=== PATIENT | male | born 1955 | race Caucasian/White ===

== ENCOUNTER 2016-04-26 05:07 | Inpatient (IN) | payer MEDICAID, OTHER ==
[~2016-04-26] VITALS: Ht 188 cm; Wt 76.8 kg
[2016-04-26 05:38] LABS: BASOPHILS # (AUTO) 0.08 K/uL (0.00-0.20); BASOPHILS % (AUTO) 0.9 % (0.0-2.0); EOSINOPHILS # (AUTO) 0.16 K/uL (0.00-0.70); EOSINOPHILS % (AUTO) 1.67 % (1.0-6.0); HEMATOCRIT 30.2 % (41-53); HEMOGLOBIN 10.1 g/dL (13.5-17.5); LYMPHOCYTES # (AUTO) 2.3 K/uL (1.0-4.8); LYMPHOCYTES % (AUTO) 24.4 % (22.0-44.0); MEAN CORPUSCULAR HEMOGLOBIN 30.2 pg (26.0-34.0); MEAN CORPUSCULAR HGB CONC 33.4 G/dL (31.0-37.0); MEAN CORPUSCULAR VOLUME 90 fL (80-100); MONOCYTES # (AUTO) 1.2 K/uL (0.1-1.0); MONOCYTES % (AUTO) 13.3 % (2.0-9.0); NEUTROPHILS # (AUTO) 5.6 K/uL (1.8-7.7); NEUTROPHILS % (AUTO) 59.7 % (40.0-70.0); PLATELET COUNT (AUTO) 437 K/uL (150-450); RED BLOOD CELL COUNT(AUTO) 3.34 MIL/uL (4.50-5.90); RED CELL DISTRIBUTION WIDTH 15.1 % (11.5-14.5); WHITE BLOOD COUNT (AUTO) 9.3 K/uL (4.5-11.0)
[2016-04-26 06:31] LABS: ALANINE AMINOTRANSFERASE 26 U/L (12-78); ALBUMIN 2.9 g/dL (3.4-5.0); ANION GAP 11 mmol/L (8-16); ASPARTATE AMINOTRANSFERASE 29 U/L (15-37); BILIRUBIN,TOTAL 0.4 mg/dL (0.1-1.0); CALCIUM, TOTAL 8.4 mg/dL (8.8-10.5); CARBON DIOXIDE 24 mmol/L (22-29); CHLORIDE 96 mmol/L (98-107); CREATININE 1.02 mg/dL (0.60-1.30); GLOMERULAR FILTR. RATE CALC > 60 mL/min (>60); POTASSIUM 3.8 mmol/L (3.5-5.1); SODIUM SERUM 131 mmol/L (136-145); TOTAL PROTEIN, SERUM 6.9 g/dL (6.4-8.2); UREA NITROGEN, BLOOD 15 mg/dL (7-18)
[2016-04-26] MEDS ORDERED: HALOPERIDOL 5 MG TABLET PO PRN (11:30)
[2016-04-26] MEDS ORDERED: ZOLPIDEM TARTRATE 10 MG TABLET PO PRN (11:30)
[2016-04-26] MEDS ORDERED: LORazepam 2 MG TABLET PO PRN (11:30)
[2016-04-26 13:00] VITALS: BP 99/67
[2016-04-26] MEDS ORDERED: IBUPROFEN 400 MG TABLET PO PRN (15:00)
[2016-04-26] MEDS ORDERED: ACETAMINOPHEN 325 MG TABLET PO PRN (15:00)
[2016-04-26] MEDS: FERROUS SULFATE 325 MG EC TABLET PO SCH (16:56)
[2016-04-26 17:54] VITALS: BP 117/76
[2016-04-26] MEDS: RisperiDONE 1 MG TABLET PO SCH (20:56)
[2016-04-27 04:57] VITALS: BP 120/80
[2016-04-27] MEDS: FERROUS SULFATE 325 MG EC TABLET PO SCH ×3 (06:36→17:41)
[2016-04-27 07:22] LABS: CHOL/HDL RATIO 2.8 (4.2-7.3); THYROID STIMULATING HORMONE 3.79 uIU/mL (0.36-3.74)
[2016-04-27 07:23] LABS: HEMOGLOBIN A1C 5.3 % (4.5-6.2)
[2016-04-27 08:30] VITALS: BP 91/61
[2016-04-27] MEDS: RisperiDONE 1 MG TABLET PO SCH ×2 (08:52→20:18)
[2016-04-27 20:18] VITALS: BP 105/69
[2016-04-28] MEDS: FERROUS SULFATE 325 MG EC TABLET PO SCH ×3 (06:35→17:13)
[2016-04-28] MEDS: RisperiDONE 1 MG TABLET PO SCH ×2 (09:10→20:37)
[2016-04-28 15:28] VITALS: BP 128/90
[2016-04-28 16:04] VITALS: BP 123/78
[2016-04-29 05:46] VITALS: BP 141/76
[2016-04-29] MEDS: FERROUS SULFATE 325 MG EC TABLET PO SCH ×3 (07:03→16:58)
[2016-04-29 08:07] VITALS: BP 105/70
[2016-04-29] MEDS: RisperiDONE 1 MG TABLET PO SCH ×2 (08:51→20:07)
[2016-04-29 08:52] LABS: ANION GAP 7 mmol/L (8-16); CALCIUM, TOTAL 8.4 mg/dL (8.8-10.5); CARBON DIOXIDE 28 mmol/L (22-29); CHLORIDE 101 mmol/L (98-107); CREATININE 0.98 mg/dL (0.60-1.30); GLOMERULAR FILTR. RATE CALC > 60 mL/min (>60); POTASSIUM 4.3 mmol/L (3.5-5.1); SODIUM SERUM 136 mmol/L (136-145); UREA NITROGEN, BLOOD 18 mg/dL (7-18)
[2016-04-29 16:00] VITALS: BP 121/86
[2016-04-30 06:01] VITALS: BP 102/70
[2016-04-30] MEDS: FERROUS SULFATE 325 MG EC TABLET PO SCH ×3 (06:52→17:12)
[2016-04-30 08:00] VITALS: BP 146/93
[2016-04-30] MEDS: RisperiDONE 1 MG TABLET PO SCH ×2 (08:58→20:20)
[2016-04-30 22:58] VITALS: BP 136/81
[2016-05-01 05:56] VITALS: BP 150/79
[2016-05-01] MEDS: FERROUS SULFATE 325 MG EC TABLET PO SCH ×3 (06:39→18:39)
[2016-05-01 08:07] VITALS: BP 144/66
[2016-05-01] MEDS: RisperiDONE 1 MG TABLET PO SCH ×2 (10:29→20:05)
[2016-05-01 19:49] VITALS: BP 139/84
[2016-05-02] MEDS: FERROUS SULFATE 325 MG EC TABLET PO SCH ×3 (05:45→17:34)
[2016-05-02 08:00] VITALS: BP 107/60
[2016-05-02] MEDS: RisperiDONE 1 MG TABLET PO SCH ×2 (08:59→20:41)
[2016-05-02 17:22] VITALS: BP 142/82
[2016-05-03] MEDS: FERROUS SULFATE 325 MG EC TABLET PO SCH ×3 (06:37→16:33)
[2016-05-03 08:00] VITALS: BP 149/81
[2016-05-03] MEDS: RisperiDONE 1 MG TABLET PO SCH ×2 (08:55→20:38)
[2016-05-03 17:45] VITALS: BP 124/80
[2016-05-04 01:35] VITALS: BP 120/60
[2016-05-04] MEDS: FERROUS SULFATE 325 MG EC TABLET PO SCH ×3 (07:07→16:35)
[2016-05-04 08:00] VITALS: BP 144/84
[2016-05-04] MEDS: RisperiDONE 1 MG TABLET PO SCH ×2 (08:26→20:25)
[2016-05-04 16:49] VITALS: BP 132/76
[2016-05-04 16:52] VITALS: BP 132/76
[2016-05-05 03:16] VITALS: BP 101/76
[2016-05-05] MEDS: FERROUS SULFATE 325 MG EC TABLET PO SCH ×3 (06:21→19:41)
[2016-05-05] MEDS: RisperiDONE 1 MG TABLET PO SCH ×2 (08:18→20:08)
[2016-05-05 10:32] VITALS: BP 123/85
[2016-05-05 16:13] VITALS: BP 154/78
[2016-05-06] MEDS: FERROUS SULFATE 325 MG EC TABLET PO SCH ×3 (06:34→17:07)
[2016-05-06] MEDS: RisperiDONE 1 MG TABLET PO SCH ×2 (08:28→20:19)
[2016-05-06 10:33] VITALS: BP 116/80
[2016-05-06 19:59] VITALS: BP 128/79
[2016-05-07] MEDS: FERROUS SULFATE 325 MG EC TABLET PO SCH ×3 (06:40→17:41)
[2016-05-07 08:00] VITALS: BP 110/72
[2016-05-07] MEDS: RisperiDONE 1 MG TABLET PO SCH ×2 (08:23→21:24)
[2016-05-07 17:29] VITALS: BP 108/70
[2016-05-08] MEDS: FERROUS SULFATE 325 MG EC TABLET PO SCH ×3 (06:35→16:38)
[2016-05-08] MEDS: RisperiDONE 1 MG TABLET PO SCH ×2 (08:42→20:05)
[2016-05-08 10:12] VITALS: BP 140/81
[2016-05-08 21:24] VITALS: BP 112/70
[2016-05-09] MEDS: FERROUS SULFATE 325 MG EC TABLET PO SCH ×3 (06:37→17:17)
[2016-05-09] MEDS: RisperiDONE 1 MG TABLET PO SCH ×2 (08:15→20:03)
[2016-05-09 08:51] VITALS: BP 104/68
[2016-05-09 17:15] VITALS: BP 106/68
[2016-05-10] MEDS: FERROUS SULFATE 325 MG EC TABLET PO SCH ×3 (06:34→17:16)
[2016-05-10] MEDS: RisperiDONE 1 MG TABLET PO SCH ×2 (09:27→20:07)
[2016-05-10 09:28] VITALS: BP 150/84
[2016-05-10 16:45] VITALS: BP 153/84
[2016-05-11] MEDS: FERROUS SULFATE 325 MG EC TABLET PO SCH ×3 (06:31→17:29)
[2016-05-11] MEDS: RisperiDONE 1 MG TABLET PO SCH ×2 (09:05→20:26)
[2016-05-11 09:18] VITALS: BP 135/79
[2016-05-11 16:26] VITALS: BP 120/83
[2016-05-12] MEDS: FERROUS SULFATE 325 MG EC TABLET PO SCH ×3 (06:35→17:12)
[2016-05-12] MEDS: RisperiDONE 1 MG TABLET PO SCH ×2 (09:03→20:29)
[2016-05-12 09:35] VITALS: BP 125/76
[2016-05-12 16:49] VITALS: BP 113/70
[2016-05-13] MEDS: FERROUS SULFATE 325 MG EC TABLET PO SCH ×3 (06:35→17:18)
[2016-05-13 09:10] VITALS: BP 106/75
[2016-05-13] MEDS: RisperiDONE 1 MG TABLET PO SCH ×2 (09:34→20:24)
[2016-05-13 16:57] VITALS: BP 128/84
[2016-05-14] MEDS: FERROUS SULFATE 325 MG EC TABLET PO SCH ×3 (06:46→16:23)
[2016-05-14 08:33] VITALS: BP 161/85
[2016-05-14] MEDS: RisperiDONE 1 MG TABLET PO SCH ×2 (09:06→20:21)
[2016-05-14 17:00] VITALS: BP 141/81
[2016-05-15 06:33] VITALS: BP 132/79
[2016-05-15] MEDS: FERROUS SULFATE 325 MG EC TABLET PO SCH ×3 (06:55→18:47)
[2016-05-15 08:34] VITALS: BP 123/74
[2016-05-15] MEDS: RisperiDONE 1 MG TABLET PO SCH ×2 (08:35→20:07)
[2016-05-15 16:41] VITALS: BP 134/82
[2016-05-16] MEDS: FERROUS SULFATE 325 MG EC TABLET PO SCH ×2 (06:46→12:06)
[2016-05-16] MEDS: RisperiDONE 1 MG TABLET PO SCH (09:29)
[2016-05-16] MEDS ORDERED: RISP1 PO (11:30)
[2016-05-16] MEDS ORDERED: FERR-89 PO (11:31)
[2016-05-16 15:39] VITALS: BP 134/88
== END 2016-05-16 15:50 | disposition home or self-care (01) | DRG 751 ==
LOC: EEVIPCON 05:08 → EMS 05:08 → 3EI 12:28
DX: F29 Unspecified psychosis not due to a substance or known physiological condition (principal); E87.1 Hypo-osmolality and hyponatremia; E46 Unspecified protein-calorie malnutrition; F10.27 Alcohol dependence with alcohol-induced persisting dementia; F32.9 Major depressive disorder, single episode, unspecified; F17.210 Nicotine dependence, cigarettes, uncomplicated; D64.9 Anemia, unspecified; Z90.49 Acquired absence of other specified parts of digestive tract; Z68.21 Body mass index [BMI] 21.0-21.9, adult; Z71.6 Tobacco abuse counseling; Z71.41 Alcohol abuse counseling and surveillance of alcoholic
CPT/HCPCS: 83036; 84443; 99285; G0480

== ENCOUNTER 2016-05-16 21:32 | Emergency (ER) | payer MEDICAID, OTHER ==
[~2016-05-16] VITALS: Ht 172.7 cm; Wt 63.6 kg
[~2016-05-16 21:32] MED LIST: FERR-89 PO; RISP1 PO
[2016-05-16 21:58] LABS: BASOPHILS % (AUTO) 0.6 % (0.0-2.0); EOSINOPHILS % (AUTO) 0.9 % (1.0-6.0); HEMATOCRIT 32.8 % (41-53); HEMOGLOBIN 10.9 g/dL (13.5-17.5); LYMPHOCYTES # (AUTO) 2.7 K/uL (1.0-4.8); LYMPHOCYTES % (AUTO) 22.5 % (22.0-44.0); MEAN CORPUSCULAR VOLUME 91 fL (80-100); MONOCYTES # (AUTO) 1.1 K/uL (0.1-1.0); MONOCYTES % (AUTO) 8.9 % (2.0-9.0); NEUTROPHILS # (AUTO) 8.1 K/uL (1.8-7.7); NEUTROPHILS % (AUTO) 67.1 % (40.0-70.0); PLATELET COUNT (AUTO) 313 K/uL (150-450); RED BLOOD CELL COUNT(AUTO) 3.61 MIL/uL (4.50-5.90); RED CELL DISTRIBUTION WIDTH 15.6 % (11.5-14.5); WHITE BLOOD COUNT (AUTO) 12.1 K/uL (4.5-11.0)
[2016-05-16 22:15] LABS: ANION GAP 11 mmol/L (8-16); CALCIUM, TOTAL 9.3 mg/dL (8.8-10.5); CARBON DIOXIDE 27 mmol/L (22-29); CHLORIDE 102 mmol/L (98-107); CREATININE 1.09 mg/dL (0.60-1.30); GLOMERULAR FILTR. RATE CALC > 60 mL/min (>60); POTASSIUM 4.4 mmol/L (3.5-5.1); SODIUM SERUM 140 mmol/L (136-145); UREA NITROGEN, BLOOD 22 mg/dL (7-18)
[2016-05-16 22:20] LABS: ALANINE AMINOTRANSFERASE 22 U/L (12-78); ALBUMIN 3.4 g/dL (3.4-5.0); ASPARTATE AMINOTRANSFERASE 21 U/L (15-37); BILIRUBIN,TOTAL 0.4 mg/dL (0.1-1.0); TOTAL PROTEIN, SERUM 7.2 g/dL (6.4-8.2)
[2016-05-17 01:48] VITALS: BP 127/85
== END 2016-05-17 01:53 | disposition home or self-care (01) ==
LOC: EMS 21:33
DX: F25.9 Schizoaffective disorder, unspecified (principal); F17.210 Nicotine dependence, cigarettes, uncomplicated; F32.9 Major depressive disorder, single episode, unspecified; D64.9 Anemia, unspecified
CPT/HCPCS: 36415; 80053; 80307; 85025; 99285; 99406; G0480